=== PATIENT | male | born 1965 | race Caucasian/White ===

== ENCOUNTER 2019-02-22 18:14 | Inpatient (IN) | payer MEDICAID ==
[~2019-02-22] VITALS: Ht 180.3 cm; Wt 86.7 kg
[2019-02-22 18:26] VITALS: BP 132/88
[2019-02-22 18:32] LABS: BASO % 0.5 % (0.0-1.0); EOS # 0.3 10*3/uL (0.0-0.4); EOS % 3.1 % (1.0-4.0); HEMOGLOBIN 14.1 g/dl (14.0-18.0); LYMPH # 2.8 10*3/uL (1.3-4.4); LYMPH % 31.4 % (27.0-41.0); MEAN CELL VOLUME 86.9 fl (80.0-94.0); MEAN CORPUSCULAR HGB 29.9 pg (27.0-31.0); MEAN CORPUSCULAR HGB CONC 34.4 g/dl (33.0-37.0); MEAN PLATELET VOLUME 8.6 fl (9.6-12.3); MONO # 0.8 10*3/uL (0.1-1.0); NEUT # 4.9 10*3/uL (2.3-7.9); NEUT % 55.8 % (47.0-73.0); PLATELET COUNT AUTOMATED 545 10*3/uL (130-400); RED BLOOD COUNT 4.72 10*6/uL (4.50-5.90); WHITE BLOOD COUNT 8.8 10*3/uL (4.8-10.8)
[2019-02-22] MEDS ORDERED: PROVENTIL HFA6.7 GM INH (18:39)
[2019-02-22] MEDS ORDERED: ASPIRIN81 M1 PO (18:40)
[2019-02-22] MEDS ORDERED: OMEPRAZOLE20 M2 PO (18:40)
[2019-02-22] MEDS ORDERED: FLOMAX0.4 MG PO (18:40)
[2019-02-22] MEDS ORDERED: ONCE DAILY1 EACH PO (18:41)
[2019-02-22] MEDS ORDERED: METOPROLOL25 MG PO (18:41)
[2019-02-22] MEDS ORDERED: BENADRYL ALLERG25 M5 PO (18:41)
[2019-02-22 18:43] LABS: ACT PARTIAL THROMBO TIME 26.4 SECONDS (20.0-32.1); INTERNATIONAL NORM RATIO 0.9 (2.0-3.5)
[2019-02-22 18:48] LABS: ALBUMIN 3.2 gm/dl (3.1-4.5); ALKALINE PHOSPHATASE 93 U/L (45-117); BUN 13 mg/dl (7-24); CHLORIDE 109 mmol/L (98-107); CREATININE 0.75 mg/dL (0.70-1.30); POTASSIUM 3.9 mmol/L (3.5-5.1); SGOT/AST 36 IU/L (3-35); SGPT/ALT 41 U/L (12-78); SODIUM 139 mmol/L (136-145); TOTAL PROTEIN 6.7 gm/dL (6.4-8.2)
[2019-02-22 18:49] LABS: TROPONIN I < 0.015 ng/ml (<0.045)
[2019-02-22 21:01] VITALS: BP 130/78
[2019-02-22 21:15] VITALS: BP 149/93
--- NOTE | 2019-02-22 21:15 | NUR ---
A 53, admitted to 5E, under the services of ARCHIE Wood DO with a diagnosis of BICEPS TENDON TEAR, CHEST PAIN. Chief complaint is MULTIPLE COMPLAINTS. Patient arrived via ambulatory from ER. Monitor applied. Initial assessment completed. Vital signs taken and recorded. ARCHIE WOOD DO notified of admission to the unit. Orders received. See assessment for past medical history, medications and allergies. Patient and/or family oriented to unit. visitation policy reviewed. Clothing/patient valuable form completed. SHANIA SAHU
--- NOTE | 2019-02-22 22:10 | NUR ---
DR. YEUNG NOTIFIED THAT PATIENT DOESN'T KNOW WHAT ALL MEDICATIONS HE TAKES AND THAT THEY WILL NEED VERIFIED WITH HIS PHARMACY IN [place]. WILL PASS ON TO DAYLIGHT SHIFT.
[2019-02-23] VITALS: BP 142/89
--- NOTE | 2019-02-23 02:38 | NUR ---
PATIENT MEDICATED WITH DILAUDID 1MG FOR COMPLAINTS OF RIGHT BICEP PAIN. WILL MONITOR FOR EFFECTIVENESS OF MEDICATION. CALL LIGHT IN REACH.
[2019-02-23 06:28] LABS: BASO # 0.1 10*3/uL (0.0-0.1); BASO % 0.9 % (0.0-1.0); EOS # 0.6 10*3/uL (0.0-0.4); EOS % 7.8 % (1.0-4.0); HEMATOCRIT 39.1 % (42.0-52.0); HEMOGLOBIN 13.1 g/dl (14.0-18.0); LYMPH # 3.4 10*3/uL (1.3-4.4); LYMPH % 41.6 % (27.0-41.0); MEAN CELL VOLUME 86.1 fl (80.0-94.0); MEAN CORPUSCULAR HGB 28.9 pg (27.0-31.0); MEAN CORPUSCULAR HGB CONC 33.5 g/dl (33.0-37.0); MEAN PLATELET VOLUME 8.7 fl (9.6-12.3); MONO # 0.8 10*3/uL (0.1-1.0); MONO % 10.2 % (3.0-9.0); NEUT # 3.2 10*3/uL (2.3-7.9); NEUT % 39.3 % (47.0-73.0); PLATELET COUNT AUTOMATED 534 10*3/uL (130-400); RED BLOOD COUNT 4.54 10*6/uL (4.50-5.90); RED CELL DISTRI WIDTH 14.3 % (0-14.5); WHITE BLOOD COUNT 8.1 10*3/uL (4.8-10.8)
[2019-02-23 06:34] LABS: BUN 14 mg/dl (7-24); CHLORIDE 110 mmol/L (98-107); CHOLESTEROL 114 mg/dL (<200); CREATININE 0.78 mg/dL (0.70-1.30); HDL CHOLESTEROL 49 mg/dl (40-60); LDL CHOLESTEROL 39 mg/dL (9-159); PHOSPHOROUS 3.5 mg/dL (2.5-4.9); POTASSIUM 3.7 mmol/L (3.5-5.1); SODIUM 141 mmol/L (136-145); TRIGLYCERIDES 129 mg/dl (<150); VLDL CHOLESTEROL 26 mg/dL (6-40)
[2019-02-23 07:59] VITALS: BP 154/88
--- NOTE | 2019-02-23 08:13 | NUR ---
PT C/O OF RIGHT BICEP PAIN RATING 6/10 PRB DILAUDID GIVEN PER ORDER
--- NOTE | 2019-02-23 08:50 | NUR ---
PT RESTING IN BED WITH EYES CLOSED
--- NOTE | 2019-02-23 10:30 | NUR ---
Production Engineer in to talk to patient. Patient states lives at home with his girlfriend and her mother. There are 0 steps in the home. There are 2 wheelchair ramps. Physician: Wes Calderón Pharmacy: [facility] Home health services: none Patient's level of ADLs: INDEPENDENT Patient has working utilities: yes DME: none Follow-up physician's appointment after d/c: will be made by the hospitalist nurse director upon discharge Does patient want to access PORTAL?: no Discharge plan discussed with patient. He lives at home with his girlfriend and her mother. He is independent in his ADLs and ambulation. Discussed home health care services and he denies any home needs at this time. He states he is in the process of moving from [place] to [place]. When medically stable he will be discharged to home. His girlfriend will provide transportation on discharge. AIDAN CUBA
--- NOTE | 2019-02-23 11:05 | NUR ---
Occupational therapy orders received as well as nursing screen. Patient waiting for an orthopedic consult to determine further care of the right shoulder. Patient was independent with ADLS, mobility, and transfers. Patient was preparing to take a shower upon arrival. Patient R shoulder MMT/ROM deferred at this time due to safety. Please send orders for an OT evaluation orders following ortho consult. Patient and OT discussed possible outpatient OT dependent on POC.
--- NOTE | 2019-02-23 11:14 | NUR ---
PHYSICAL THERAPY Physical therapy screen completed. Pt is fully independent with ambulation and ADLs without AD. assistant professor of life sciences currently wrapping Patient's IV to allow Patient to shower independently. Patient encouraged to avoid excessive R UE elbow flexion, avoid lifting and avoid excesive R UE usage to prevent extra stress on bicep/shoulder. Discussed home set up and prior level of function. Still awaiting orthopedic doctor orders on R UE restrictions/precautions and Plan of care. Pt has no therapy needs at this time. Recommending follow up with outpatient therapy. Thank you Svetlana Post, PT, DPT
[2019-02-23 11:42] VITALS: BP 127/79
--- NOTE | 2019-02-23 14:32 | NUR ---
PT C/O OF RIGHT BICEP PAIN 10/ AFTER MRI AR DILAUD GIVEN PER ORDER
--- NOTE | 2019-02-23 15:47 | NUR ---
PER PT PRN DILAUDID EFFECTIVE FOR PAIN
[2019-02-23 16:00] VITALS: BP 150/96
--- NOTE | 2019-02-23 18:30 | NUR ---
PT LEAVING AMA PER PT HIS FAMILY IS SICK NOTIFIED
== END 2019-02-23 19:22 | disposition left against medical advice (07) | DRG 351 ==
LOC: ED 18:14 → EDHOLD 20:56 → 5E 20:56
PROVIDERS: Emergency Medicine; Student in an Organized Health Care Education/Training Program; ADMIT Internal Medicine
DX: S46.211A Strain of muscle, fascia and tendon of other parts of biceps, right arm, initial encounter (principal); E44.0 Moderate protein-calorie malnutrition; E87.8 Other disorders of electrolyte and fluid balance, not elsewhere classified; E83.51 Hypocalcemia; M94.0 Chondrocostal junction syndrome [Tietze]; K21.9 Gastro-esophageal reflux disease without esophagitis; F12.20 Cannabis dependence, uncomplicated; X58.XXXA Exposure to other specified factors, initial encounter; I10 Essential (primary) hypertension; N40.0 Benign prostatic hyperplasia without lower urinary tract symptoms; R73.9 Hyperglycemia, unspecified; D47.3 Essential (hemorrhagic) thrombocythemia; Z88.5 Allergy status to narcotic agent; Y93.89 Activity, other specified; Z88.8 Allergy status to other drugs, medicaments and biological substances; Z79.82 Long term (current) use of aspirin; Z79.899 Other long term (current) drug therapy; Z68.25 Body mass index [BMI] 25.0-25.9, adult

== ENCOUNTER 2019-09-28 16:14 | Emergency (ER) | payer OTHER ==
[~2019-09-28] VITALS: Ht 180.3 cm; Wt 93.0 kg
[~2019-09-28 16:14] MED LIST: ASPIRIN81 M1 PO; BENADRYL ALLERG25 M5 PO; FLOMAX0.4 MG PO; METOPROLOL25 MG PO; OMEPRAZOLE20 M2 PO; ONCE DAILY1 EACH PO; PROVENTIL HFA6.7 GM INH
[2019-09-28] MEDS ORDERED: ANTIBIOTIC28.4 GM T ×2 (16:59→18:06)
[2019-09-28] MEDS ORDERED: KEFLEX500 M1 PO ×2 (16:59→18:06)
== END 2019-09-28 17:36 | disposition home or self-care (01) ==
LOC: ED 16:14
DX: S61.011A Laceration without foreign body of right thumb without damage to nail, initial encounter (principal); Z88.8 Allergy status to other drugs, medicaments and biological substances; W31.89XA Contact with other specified machinery, initial encounter; Y93.89 Activity, other specified; Y92.89 Other specified places as the place of occurrence of the external cause; Y99.8 Other external cause status

== ENCOUNTER 2020-02-19 18:29 | Observation (INO) | payer OTHER ==
[~2020-02-19] VITALS: Ht 180 cm; Wt 86.2 kg
[~2020-02-19 18:29] MED LIST changes: +ANTIBIOTIC28.4 GM T; +KEFLEX500 M1 PO
[2020-02-19 18:39] VITALS: BP 151/97
[2020-02-19 18:44] LABS: BASO # 0.1 10*3/uL (0.0-0.1); BASO % 1.4 % (0.0-1.0); EOS # 1.6 10*3/uL (0.0-0.4); EOS % 15.8 % (1.0-4.0); HEMATOCRIT 44.9 % (42.0-52.0); LYMPH % 30.6 % (27.0-41.0); MEAN CELL VOLUME 81.8 fl (80.0-94.0); MEAN CORPUSCULAR HGB 28.2 pg (27.0-31.0); MEAN CORPUSCULAR HGB CONC 34.5 g/dl (33.0-37.0); MEAN PLATELET VOLUME 8.3 fl (9.6-12.3); MONO # 0.8 10*3/uL (0.1-1.0); MONO % 8.5 % (3.0-9.0); NEUT # 4.3 10*3/uL (2.3-7.9); NEUT % 43.3 % (47.0-73.0); PLATELET COUNT AUTOMATED 589 10*3/uL (130-400); RED BLOOD COUNT 5.49 10*6/uL (4.50-5.90); RED CELL DISTRI WIDTH 14.5 % (0-14.5); WHITE BLOOD COUNT 9.9 10*3/uL (4.8-10.8)
[2020-02-19 19:00] LABS: ALBUMIN 3.6 gm/dl (3.1-4.5); ALKALINE PHOSPHATASE 109 U/L (45-117); BUN 5 mg/dl (7-24); CHLORIDE 108 mmol/L (98-107); CREATININE 0.81 mg/dL (0.70-1.30); POTASSIUM 3.8 mmol/L (3.5-5.1); SGOT/AST 20 IU/L (3-35); SGPT/ALT 26 U/L (12-78); SODIUM 141 mmol/L (136-145); TOTAL PROTEIN 7.2 gm/dL (6.4-8.2)
[2020-02-19 19:01] LABS: TROPONIN I < 0.015 ng/ml (<0.045)
[2020-02-19 19:05] LABS: ACT PARTIAL THROMBO TIME 26.2 SECONDS (20.0-32.1)
[2020-02-19 21:01] VITALS: BP 151/94
[2020-02-19 22:45] VITALS: BP 135/91
[2020-02-19] MEDS ORDERED: ASPIRIN ADULT L81 M1 PO (23:36)
[2020-02-19] MEDS ORDERED: NEURONTIN800 MG PO (23:37)
[2020-02-19] MEDS ORDERED: DEPAKOTE500 M1 PO ×2 (23:39)
[2020-02-19] MEDS ORDERED: CYCLOBENZAPRINE10 MG PO (23:40)
[2020-02-19] MEDS ORDERED: OMEPRAZOLE10 MG PO (23:41)
[2020-02-19] MEDS ORDERED: ADIPEX-P37.5 M2 PO (23:42)
[2020-02-19] MEDS ORDERED: NITROSTAT0.3 M1 SL (23:43)
[2020-02-19] MEDS ORDERED: EPIPEN JR0.15 MG/01 IJ (23:44)
[2020-02-19] MEDS ORDERED: TOPROL XL50 M1 PO (23:46)
[2020-02-20] MEDS ORDERED: Tegretol-Xr 20200 MG PO (04:56)
[2020-02-20 06:52] LABS: HEMATOCRIT 44.1 % (42.0-52.0); MEAN CELL VOLUME 83.2 fl (80.0-94.0); MEAN CORPUSCULAR HGB 28.1 pg (27.0-31.0); MEAN CORPUSCULAR HGB CONC 33.8 g/dl (33.0-37.0); MEAN PLATELET VOLUME 8.4 fl (9.6-12.3); PLATELET COUNT AUTOMATED 565 10*3/uL (130-400); RED CELL DISTRI WIDTH 14.9 % (0-14.5)
[2020-02-20 07:17] LABS: ACANTHOCYTES FEW; ATYPICAL LYMPHS 1 % (0-0); BASOPHILS 3 % (0-1); PLATELET SUFFICIENCY HIGH (NORMAL); SCHISTOCYTES FEW; SPHEROCYTES FEW; TOTAL CELLS COUNTED 100 #CELLS
[2020-02-20 07:22] LABS: BUN 12 mg/dl (7-24); CHLORIDE 109 mmol/L (98-107); CREATININE 0.77 mg/dL (0.70-1.30); POTASSIUM 4.1 mmol/L (3.5-5.1); SODIUM 142 mmol/L (136-145)
[2020-02-20 08:00] VITALS: BP 147/90
[2020-02-20 08:30] VITALS: BP 138/92
[2020-02-20 12:00] VITALS: BP 132/97
[2020-02-20] MEDS ORDERED: FLOMAX0.4 MG PO (13:11)
[2020-02-20] MEDS ORDERED: ATORVASTATIN CA80 M1 PO (13:11)
[2020-02-20 16:00] VITALS: BP 154/98
[2020-02-20 20:00] VITALS: BP 129/75
[2020-02-21] MEDS ORDERED: IMITREX50 MG PO ×2 (00:44→09:27)
[2020-02-21 08:00] VITALS: BP 142/96
[2020-02-21] MEDS ORDERED: TOPROL XL50 M1 PO (09:27)
[2020-02-21] MEDS ORDERED: CYCLOBENZAPRINE10 MG PO (09:27)
[2020-02-21] MEDS ORDERED: EPIPEN JR0.15 MG/01 IJ (09:27)
[2020-02-21] MEDS ORDERED: ATORVASTATIN CA80 M1 PO (09:27)
[2020-02-21] MEDS ORDERED: FLOMAX0.4 MG PO (09:27)
[2020-02-21] MEDS ORDERED: ASPIRIN ADULT L81 M1 PO (09:27)
[2020-02-21] MEDS ORDERED: Tegretol-Xr 20200 MG PO (09:27)
== END 2020-02-21 11:50 | disposition home or self-care (01) ==
LOC: ED 18:29 → EDHOLD 21:11 → 5E 21:11
PROVIDERS: Emergency Medicine; Student in an Organized Health Care Education/Training Program; ADMIT Internal Medicine; ATTEND Internal Medicine
DX: R07.89 Other chest pain (principal); R51.9 Headache, unspecified; E87.8 Other disorders of electrolyte and fluid balance, not elsewhere classified; E86.0 Dehydration; G43.909 Migraine, unspecified, not intractable, without status migrainosus; R00.0 Tachycardia, unspecified; I10 Essential (primary) hypertension; K21.9 Gastro-esophageal reflux disease without esophagitis; N40.0 Benign prostatic hyperplasia without lower urinary tract symptoms; F41.9 Anxiety disorder, unspecified

== ENCOUNTER 2020-04-20 12:49 | Emergency (ER) | payer OTHER ==
[~2020-04-20] VITALS: Ht 434.3 cm; Wt 95.3 kg
[~2020-04-20 12:49] MED LIST changes: +ADIPEX-P37.5 M2 PO; +ASPIRIN ADULT L81 M1 PO; +ATORVASTATIN CA80 M1 PO; +CYCLOBENZAPRINE10 MG PO; +DEPAKOTE500 M1 PO; +EPIPEN JR0.15 MG/01 IJ; +IMITREX50 MG PO; +NEURONTIN800 MG PO; +NITROSTAT0.3 M1 SL; +OMEPRAZOLE10 MG PO; +TOPROL XL50 M1 PO; +Tegretol-Xr 20200 MG PO
[2020-04-20 13:42] LABS: HEMATOCRIT 44.5 % (42.0-52.0); MEAN CORPUSCULAR HGB 27.4 pg (27.0-31.0); MEAN CORPUSCULAR HGB CONC 33.5 g/dl (33.0-37.0); MEAN PLATELET VOLUME 8.5 fl (9.6-12.3); PLATELET COUNT AUTOMATED 585 10*3/uL (130-400); RED BLOOD COUNT 5.43 10*6/uL (4.50-5.90); RED CELL DISTRI WIDTH 14.2 % (0-14.5); WHITE BLOOD COUNT 12.4 10*3/uL (4.8-10.8)
[2020-04-20 13:59] LABS: ACT PARTIAL THROMBO TIME 31.3 SECONDS (20.0-32.1); ALKALINE PHOSPHATASE 106 U/L (45-117); BUN 7 mg/dl (7-24); CHLORIDE 101 mmol/L (98-107); CREATININE 0.97 mg/dL (0.70-1.30); LIPASE 460 U/L (73-393); POTASSIUM 3.6 mmol/L (3.5-5.1); SGOT/AST 15 IU/L (3-35); SGPT/ALT 23 U/L (12-78); SODIUM 132 mmol/L (136-145); TOTAL CELLS COUNTED 100 #CELLS; TOTAL PROTEIN 7.5 gm/dL (6.4-8.2); TROPONIN I < 0.015 ng/ml (<0.045)
[2020-04-20 14:00] LABS: PLATELET SUFFICIENCY HIGH (NORMAL); TARGET CELLS FEW
[2020-04-20] MEDS ORDERED: ZITHROMAX250 MG PO (15:52)
== END 2020-04-20 16:15 | disposition home or self-care (01) ==
LOC: ED 12:49
PROVIDERS: Emergency Medicine
DX: J18.9 Pneumonia, unspecified organism (principal); J45.909 Unspecified asthma, uncomplicated; Z79.899 Other long term (current) drug therapy; Z79.82 Long term (current) use of aspirin

== ENCOUNTER 2023-06-18 13:59 | Emergency (ER) | payer OTHER ==
[~2023-06-18] VITALS: Ht 170.1 cm; Wt 95.3 kg
[~2023-06-18 13:59] MED LIST changes: +ZITHROMAX250 MG PO
[2023-06-18] MEDS ORDERED: SODIUM CHLORIDE 0.9% 1,000 ML IV ONE (14:55)
[2023-06-18] MEDS ORDERED: Ondansetron Hydrochloride 4 MG/2 ML VIAL IV ONE (14:55)
[2023-06-18 16:16] LABS: HEMATOCRIT 44.3 % (42.0-52.0); MEAN CELL VOLUME 85.4 fl (80.0-94.0); MEAN CORPUSCULAR HGB 28.1 pg (27.0-31.0); MEAN PLATELET VOLUME 8.6 fl (9.6-12.3); PLATELET COUNT AUTOMATED 486 10*3/uL (130-400); RED BLOOD COUNT 5.19 10*6/uL (4.50-5.90); RED CELL DISTRI WIDTH 15.9 % (0-14.5); WHITE BLOOD COUNT 3.6 10*3/uL (4.8-10.8)
[2023-06-18 16:40] LABS: ALKALINE PHOSPHATASE 106 U/L (46-116); BUN 5 mg/dl (9-23); CHLORIDE 103 mmol/L (98-107); LIPASE 54 U/L (12-53); MANUAL DIFF REFLEX YES; POTASSIUM 3.8 mmol/L (3.4-5.1); SGPT/ALT 15 U/L (5-49)
[2023-06-18 16:50] LABS: BASOPHILS 2 % (0-1); BURR CELLS FEW; OVALOCYTES FEW; PLATELET SUFFICIENCY HIGH (NORMAL); TARGET CELLS FEW; TOTAL CELLS COUNTED 100 #CELLS
[2023-06-18 16:51] LABS: STOMATOCYTE FEW
[2023-06-18] MEDS ORDERED: ACETAMINOPHEN 325 MG TAB PO ONE (17:15)
[2023-06-18] MEDS ORDERED: Ketorolac Tromethamine 30 MG/ML VIAL IV ONE (17:15)
[2023-06-18] MEDS ORDERED: diphenhydrAMINE hydrochloride 50 MG/ML VIAL IV ONE (17:15)
[2023-06-18 19:43] LABS: BILIRUBIN Negative (Negative); BLOOD Negative (Negative); CLARITY Clear (Clear); COLOR Yellow (Yellow); GLUCOSE Negative (Negative); KETONE Negative (Negative); LEUKO ESTERASE 1+ (Negative); NITRITE Negative (Negative); PH 6.5 (4.5-8.0); UROBILINOGEN 0.2 E.U./dl (0.0-1.0)
[2023-06-18 19:59] LABS: BACTERIA 2+
== END 2023-06-18 21:03 | disposition left against medical advice (07) ==
LOC: ED 13:59
PROVIDERS: Emergency Medicine
DX: R53.1 Weakness (principal); Z20.822 Contact with and (suspected) exposure to COVID-19; R11.2 Nausea with vomiting, unspecified; G43.909 Migraine, unspecified, not intractable, without status migrainosus; R42 Dizziness and giddiness; R10.2 Pelvic and perineal pain; J45.909 Unspecified asthma, uncomplicated; I25.2 Old myocardial infarction; F12.20 Cannabis dependence, uncomplicated; Z88.8 Allergy status to other drugs, medicaments and biological substances; Z53.29 Procedure and treatment not carried out because of patient's decision for other reasons; Z98.890 Other specified postprocedural states

== ENCOUNTER 2024-05-31 16:00 | Emergency (ER) | payer OTHER ==
[~2024-05-31] VITALS: Ht 170.1 cm; Wt 83.9 kg
[2024-05-31] MEDS ORDERED: Acetaminophen/Oxycodone 5 MG/325 MG TABLET PO ONE (16:55)
[2024-05-31] MEDS ORDERED: Ketorolac Tromethamine 30 MG/ML VIAL IM ONE (16:55)
[2024-05-31] MEDS ORDERED: CYCLOBENZAPRINE10 MG PO (17:33)
[2024-05-31] MEDS ORDERED: MELOXICAM15 MG PO (17:33)
== END 2024-05-31 20:58 | disposition home or self-care (01) ==
LOC: ED 16:00
DX: M54.50 Low back pain, unspecified (principal); J44.9 Chronic obstructive pulmonary disease, unspecified; E78.5 Hyperlipidemia, unspecified; I10 Essential (primary) hypertension; Z91.09 Other allergy status, other than to drugs and biological substances; Z79.82 Long term (current) use of aspirin; Z79.899 Other long term (current) drug therapy; Z98.890 Other specified postprocedural states; W10.8XXA Fall (on) (from) other stairs and steps, initial encounter; Y93.89 Activity, other specified; Y92.89 Other specified places as the place of occurrence of the external cause; Y99.8 Other external cause status

== ENCOUNTER 2024-08-17 11:14 | Emergency (ER) | payer OTHER ==
[~2024-08-17] VITALS: Ht 170.1 cm; Wt 77.6 kg
[~2024-08-17 11:14] MED LIST changes: +MELOXICAM15 MG PO
[2024-08-17] MEDS ORDERED: diphenhydrAMINE hydrochloride 50 MG/ML VIAL IM ONE (11:45)
[2024-08-17] MEDS ORDERED: methylPREDNISolone acetate 80 MG/ML VIAL IM ONE (11:45)
[2024-08-17] MEDS ORDERED: FAMOTIDINE 20 MG TAB PO ONE (11:45)
[2024-08-17] MEDS ORDERED: PREDNISONE10 M1 PO (12:41)
[2024-08-17] MEDS ORDERED: PEPCID40 MG PO (12:41)
[2024-08-17] MEDS ORDERED: HYDROXYZINE HCL25 MG PO (12:41)
== END 2024-08-17 12:45 | disposition home or self-care (01) ==
LOC: ED 11:14
DX: L25.5 Unspecified contact dermatitis due to plants, except food (principal); I10 Essential (primary) hypertension; E78.5 Hyperlipidemia, unspecified; J44.9 Chronic obstructive pulmonary disease, unspecified; G43.909 Migraine, unspecified, not intractable, without status migrainosus; Z91.014 Allergy to mammalian meats; Z79.899 Other long term (current) drug therapy; Z79.82 Long term (current) use of aspirin; Z98.890 Other specified postprocedural states

== ENCOUNTER 2024-09-26 15:10 | Emergency (ER) | payer OTHER ==
[~2024-09-26] VITALS: Wt 78.5 kg
[~2024-09-26 15:10] MED LIST changes: +HYDROXYZINE HCL25 MG PO; +PEPCID40 MG PO; +PREDNISONE10 M1 PO
[2024-09-26] MEDS ORDERED: SODIUM CHLORIDE 0.9% 1,000 ML IV ONE (15:20)
[2024-09-26] MEDS ORDERED: Ketorolac Tromethamine 15 MG/ML VIAL IV ONE (15:20)
[2024-09-26 15:34] LABS: BASO # 0.1 10*3/uL (0.0-0.1); BASO % 0.6 % (0.0-1.0); EOS # 0.4 10*3/uL (0.0-0.4); EOS % 3.7 % (1.0-4.0); HEMATOCRIT 38.1 % (42.0-52.0); MEAN CELL VOLUME 84.7 fl (80.0-94.0); MEAN CORPUSCULAR HGB 28.9 pg (27.0-31.0); MEAN CORPUSCULAR HGB CONC 34.1 g/dl (33.0-37.0); MEAN PLATELET VOLUME 8.9 fl (9.6-12.3); MONO # 0.9 10*3/uL (0.1-1.0); MONO % 9.7 % (3.0-9.0); NEUT # 5.8 10*3/uL (2.3-7.9); NEUT % 60.7 % (47.0-73.0); PLATELET COUNT AUTOMATED 395 10*3/uL (130-400); RED CELL DISTRI WIDTH 14.5 % (0-14.5); WHITE BLOOD COUNT 9.6 10*3/uL (4.8-10.8)
[2024-09-26 15:53] LABS: BUN 15 mg/dl (9-23); CHLORIDE 102 mmol/L (98-107); POTASSIUM 3.7 mmol/L (3.4-5.1)
[2024-09-26] MEDS ORDERED: CIPROFLOXACIN H10 ML OPH (16:27)
== END 2024-09-26 17:15 | disposition home or self-care (01) ==
LOC: ED 15:10
PROVIDERS: Emergency Medicine
DX: S05.01XA Injury of conjunctiva and corneal abrasion without foreign body, right eye, initial encounter (principal); S09.90XA Unspecified injury of head, initial encounter; M54.50 Low back pain, unspecified; Z91.09 Other allergy status, other than to drugs and biological substances; Z79.899 Other long term (current) drug therapy; Z79.82 Long term (current) use of aspirin; Z98.890 Other specified postprocedural states; Y04.8XXA Assault by other bodily force, initial encounter; Y93.89 Activity, other specified; Y92.89 Other specified places as the place of occurrence of the external cause; Y99.8 Other external cause status

== ENCOUNTER 2025-04-26 02:45 | Inpatient (IN) | payer OTHER ==
[~2025-04-26] VITALS: Ht 173 cm; Wt 82.0 kg
[2025-04-26] VITALS (8 sets, daily range): BP systolic 96–127; BP diastolic 76–90
[~2025-04-26 02:45] MED LIST changes: +ALDACTONE25 MG PO; +AMOX-CLAV 875-1 EACH PO; +CIPROFLOXACIN H10 ML OPH; +JARDIANCE10 MG PO; +LOSARTAN POTASS25 M1 PO; +OMEPRAZOLE40 MG PO
[2025-04-26 03:13] LABS: BASO # 0.1 10*3/uL (0.0-0.1); BASO % 1.2 % (0.0-1.0); EOS # 1.2 10*3/uL (0.0-0.4); EOS % 13.5 % (1.0-4.0); MEAN CELL VOLUME 85.7 fl (80.0-94.0); MEAN CORPUSCULAR HGB 28.7 pg (27.0-31.0); MEAN PLATELET VOLUME 9.0 fl (9.6-12.3); MONO # 0.4 10*3/uL (0.1-1.0); MONO % 4.4 % (3.0-9.0); NEUT # 3.9 10*3/uL (2.3-7.9); NEUT % 45.5 % (47.0-73.0); NUCLEATED RED BLOOD CELL 0.0 10*3/uL (0.0-0.0); NUCLEATED RED BLOOD CELL 0.2 % (0.0-0.0); PLATELET COUNT AUTOMATED 418 10*3/uL (130-400); RED CELL DISTRI WIDTH 15.7 % (0-14.5)
[2025-04-26 03:30] LABS: ACT PARTIAL THROMBO TIME 26.0 SECONDS (20.0-32.1)
[2025-04-26 03:35] LABS: BUN 10 mg/dl (9-23); SGPT/ALT 37 U/L (5-49)
[2025-04-26 04:22] LABS: BUN 12 mg/dl (9-23)
[2025-04-26] MEDS ORDERED: IOHEXOL 300 MG/ML 100 ML VIAL IV ONE (06:00)
[2025-04-26] MEDS ORDERED: BUPRENORPHINE-1 EAC2 SL (06:50)
[2025-04-26] MEDS ORDERED: Metoclopramide Hydrochloride 10 MG/2 ML VIAL IV ONE (07:05)
[2025-04-26] MEDS ORDERED: BISACODYL 5 MG TAB PO PRN (08:30)
[2025-04-26] MEDS ORDERED: ACETAMINOPHEN 650 MG SUPP R PRN (08:30)
[2025-04-26] MEDS ORDERED: Acetaminophen/Hydrocodone 5 MG/325 MG TABLET PO PRN (08:30)
[2025-04-26] MEDS ORDERED: ACETAMINOPHEN 325 MG TAB PO PRN (08:30)
[2025-04-26] MEDS ORDERED: TEMAZEPAM 15 MG CAP PO PRN (08:30)
[2025-04-26] MEDS ORDERED: Ondansetron Hydrochloride 4 MG/2 ML VIAL IV PRN (08:30)
[2025-04-26] MEDS ORDERED: BISACODYL 10 MG SUPP R PRN (08:30)
[2025-04-26] MEDS ORDERED: FUROSEMIDE 40 MG/4 ML VIAL IV SCH ×2 (10:00→18:00)
[2025-04-26] MEDS ORDERED: ATORVASTATIN CALCIUM 80 MG TAB PO SCH (11:12)
[2025-04-26] MEDS ORDERED: ASPIRIN, CHEWABLE 81 MG TAB PO SCH (11:12)
[2025-04-26] MEDS ORDERED: EMPAGLIFLOZIN 10 MG TABLET PO SCH (11:13)
[2025-04-26] MEDS ORDERED: METOPROLOL SUCCINATE XR 50 MG TAB PO SCH (11:13)
[2025-04-26] MEDS ORDERED: OMEPRAZOLE 20 MG CAP PO SCH (11:13)
[2025-04-26] MEDS ORDERED: BUPRENORPHINE HCL/NALOXONE 8 MG-2 MG SL TABLET SL SCH (14:00)
[2025-04-26] MEDS ORDERED: Albuterol Sulf/Ipratropium 3 ML VIAL NEB PRN ×2 (16:05→16:15)
[2025-04-27] VITALS: BP 100/56
[2025-04-27 08:00] VITALS: BP 113/82
[2025-04-27] MEDS ORDERED: LASIX40 MG PO (09:53)
[2025-04-27] MEDS ORDERED: SPIRONOLACTONE 25 MG TAB PO SCH (10:00)
== END 2025-04-27 10:56 | disposition home or self-care (01) | DRG 194 ==
LOC: ED 02:45 → EDHOLD 05:58 → 4E 07:16 → EDHOLD 07:16 → 4E 07:40
PROVIDERS: Student in an Organized Health Care Education/Training Program; ADMIT Internal Medicine; ATTEND Internal Medicine
DX: I11.0 Hypertensive heart disease with heart failure (principal); I50.23 Acute on chronic systolic (congestive) heart failure; E44.0 Moderate protein-calorie malnutrition; J91.8 Pleural effusion in other conditions classified elsewhere; F63.81 Intermittent explosive disorder; I25.10 Atherosclerotic heart disease of native coronary artery without angina pectoris; N40.0 Benign prostatic hyperplasia without lower urinary tract symptoms; J45.909 Unspecified asthma, uncomplicated; D75.839 Thrombocytosis, unspecified; C43.9 Malignant melanoma of skin, unspecified; E78.5 Hyperlipidemia, unspecified; F41.9 Anxiety disorder, unspecified; K21.9 Gastro-esophageal reflux disease without esophagitis; F43.10 Post-traumatic stress disorder, unspecified; F12.20 Cannabis dependence, uncomplicated; Z81.8 Family history of other mental and behavioral disorders; Z80.0 Family history of malignant neoplasm of digestive organs; Z88.8 Allergy status to other drugs, medicaments and biological substances; Z87.891 Personal history of nicotine dependence; Z86.73 Personal history of transient ischemic attack (TIA), and cerebral infarction without residual deficits; Z90.81 Acquired absence of spleen; I25.2 Old myocardial infarction; Z79.899 Other long term (current) drug therapy; Z79.01 Long term (current) use of anticoagulants; Z79.2 Long term (current) use of antibiotics; Z79.82 Long term (current) use of aspirin; Z68.27 Body mass index [BMI] 27.0-27.9, adult